=== PATIENT | female | born 1970 | race Caucasian/White ===

== ENCOUNTER 2018-02-03 07:39 | Emergency (ER) | payer OTHER, BC ==
[2018-02-03] MEDS ORDERED: DIPH,PERTUS(ACELL)TETVAC-LF 0.5 ML VIAL IM ONE (07:48)
[2018-02-03 07:54] VITALS: BP 149/81; PULSE 81; RESP 20; TEMP 98
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
[2018-02-03 08:06] LABS: Partial Thromboplastin Time 22.2 sec (22.0-30.0); Prothrombin Time 9.5 sec (9.0-12.0)
[2018-02-03 08:10] LABS: ALT 42 U/L (9-52); AST 39 U/L (14-36); Albumin 3.9 g/dL (3.5-5.0); Alcohol <10 mg/dL; Alkaline Phosphatase 75 U/L (38-126); Amylase 53 U/L (30-110); Anion Gap 11 mmol/L; Blood Urea Nitrogen 11 mg/dL (7-17); Calcium 9.1 mg/dL (8.4-10.2); Carbon Dioxide 22 mmol/L (22-30); Chloride 106 mmol/L (98-107); Glucose 109 mg/dL (74-99); Lipase 97 U/L (23-300); Potassium 4.4 mmol/L (3.5-5.1); Sodium 139 mmol/L (137-145); Total Bilirubin 0.8 mg/dL (0.2-1.3); Total Protein 6.6 g/dL (6.3-8.2)
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
[2018-02-03 08:18] LABS: Basophils % (A) 1 %; Eosinophils # (A) 0.1 k/uL (0-0.7); Eosinophils % (A) 1 %; HCT 42.6 % (34.0-46.0); HGB 14.3 gm/dL (11.4-16.0); Lymphocytes # (A) 1.4 k/uL (1.0-4.8); Lymphocytes % (A) 20 %; MCH 31.6 pg (25.0-35.0); MCHC 33.6 g/dL (31.0-37.0); MCV 94.2 fL (80.0-100.0); Monocytes # (A) 0.6 k/uL (0-1.0); Monocytes % (A) 8 %; Neutrophils # (A) 4.8 k/uL (1.3-7.7); Neutrophils % (A) 68 %; Platelet Count 183 k/uL (150-450); RBC 4.52 m/uL (3.80-5.40); RDW 12.1 % (11.5-15.5); WBC 7.1 k/uL (3.8-10.6)
[2018-02-03] MEDS ORDERED: HYDROmorphone 0.5 MG/0.5 ML SYRINGE IVP STA (08:18)
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
[2018-02-03 08:22] LABS: Creatine Kinase 95 U/L (30-135)
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
[2018-02-03 08:34] LABS: Creatine Kinase MB 0.4 ng/mL (0.0-2.4); Troponin I <0.012 ng/mL (0.000-0.034)
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
[2018-02-03 08:59] LABS: Glucose,Whole Blood 108 mg/dL (75-99)
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
--- NOTE | 2018-02-03 11:14 | XR ---
EXAMINATION TYPE: XR forearm RT DATE OF EXAM: 02/03/2018 COMPARISON: NONE HISTORY: Lacerations with foreign bodies forearm TECHNIQUE: Right forearm is examined in 2 views. This exam is compared with an earlier examination FINDINGS: The superficial foreign bodies are largely absent. A large foreign body remains within the mid soft tissues. A more subtle foreign body also remains within the wound site IMPRESSION: 1. 2 radiopaque foreign bodies remain present which appear to be within the wounds. Remaining foreig n bodies have resolved.
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
--- NOTE | 2018-02-06 02:52 | CDI ---
Dear Carlos Rico DO: Please do addendum method of foreign body removal: with/without incision. Thank you, Aris Guzman, Mri Ct Tech. If you have any questions, please contact Html Developer at [phone]. [facility]
== END 2018-02-03 11:40 | disposition home or self-care (01) ==
LOC: EC 07:39
DX: S92.332A Displaced fracture of third metatarsal bone, left foot, initial encounter for closed fracture (principal); S92.345A Nondisplaced fracture of fourth metatarsal bone, left foot, initial encounter for closed fracture; S41.119A Laceration without foreign body of unspecified upper arm, initial encounter; M79.5 Residual foreign body in soft tissue; S50.811A Abrasion of right forearm, initial encounter; S90.812A Abrasion, left foot, initial encounter; R16.0 Hepatomegaly, not elsewhere classified; N32.89 Other specified disorders of bladder; R07.89 Other chest pain; R93.8 Abnormal findings on diagnostic imaging of other specified body structures; J45.909 Unspecified asthma, uncomplicated; Z79.899 Other long term (current) drug therapy; Z88.5 Allergy status to narcotic agent; Z88.8 Allergy status to other drugs, medicaments and biological substances; Z23 Encounter for immunization; V49.40XA Driver injured in collision with unspecified motor vehicles in traffic accident, initial encounter; Y93.89 Activity, other specified; Y92.410 Unspecified street and highway as the place of occurrence of the external cause
CPT/HCPCS: 99291; 29515; 96374; 90471; 36415; 93005; 86900; 86901; 80053; 82150; 82550; 82553; 83605; 83690; 84484; 85025; 85610; 85730; 86850; 80320; 73630; 72170; 73090; 73130; 71045; 72125; 70450; 71260; 74177; 90715; J1170; Q9967

== ENCOUNTER → 2018-02-11 | Outpatient (CLI) | payer OTHER, BC ==
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
== END | disposition home or self-care (01) ==
LOC: RADCTMAIN 17:38
PROVIDERS: ATTEND Orthopaedic Surgery
DX: S92.322D Displaced fracture of second metatarsal bone, left foot, subsequent encounter for fracture with routine healing (principal); S92.332D Displaced fracture of third metatarsal bone, left foot, subsequent encounter for fracture with routine healing; S92.342D Displaced fracture of fourth metatarsal bone, left foot, subsequent encounter for fracture with routine healing; S93.325D Dislocation of tarsometatarsal joint of left foot, subsequent encounter; M77.32 Calcaneal spur, left foot

== ENCOUNTER 2018-03-07 11:33 | Day surgery (SDC) | payer OTHER, BC ==
[2018-02-28 15:38] VITALS: BMI 36.8
[~2018-03-07 11:33] MED LIST: DEXAMETHASONE SOD PHOSPHATE 10 MG/ML 1 ML VIAL IV ONE; HYDROmorphone 0.5 MG/0.5 ML SYRINGE IVP PRN; LACTATED RINGERS 1,000 ML IV SCH; LIDOCAINE 1% 20 ML VIAL (10MG/ML) FOR IV START INTRADERMA PRN; MIDAZOLAM 2 MG/2 ML VIAL IV PRN; ceFAZolin IN SWFI 2 GM/20 ML SYRINGE IVP ONE; fentaNYL (PF) 50 MCG/ML 2 ML AMP IV PRN
[2018-03-07] MEDS ORDERED: ONDANSETRON 4 MG/2 ML VIAL ONE (12:21)
[2018-03-07] MEDS: ONDANSETRON 4 MG/2 ML VIAL IVP ONE ×2 (12:32→18:07)
[2018-03-07] MEDS ORDERED: SCOPOLAMINE 1.5MG/72HR PATCH TRANSDERM ONE (12:33)
[2018-03-07] MEDS ORDERED: SUCCINYLCHOLINE CHLORIDE 100 MG/5 ML SYR IV ONE (13:45)
[2018-03-07] MEDS ORDERED: PROPOFOL 10 MG/ML 20 ML VIAL IV ONE (13:45)
[2018-03-07] MEDS ORDERED: fentaNYL (PF) 50 MCG/ML 2 ML AMP ONE (13:45)
[2018-03-07] MEDS ORDERED: LIDOCAINE 1% INJ 10MG/ML (20 ML MDV) ONE (13:45)
[2018-03-07] MEDS ORDERED: MIDAZOLAM 2 MG/2 ML VIAL ONE (13:45)
[2018-03-07] MEDS ORDERED: LACTATED RINGERS 1,000 ML IV ONE (15:33)
--- NOTE | 2018-03-07 15:45 | XR ---
EXAMINATION TYPE: XR foot limited LT, FL guidance operating room DATE OF EXAM: 03/07/2018 CLINICAL HISTORY: Left foot open reduction and internal fixation TECHNIQUE: Fluoroscopy. COMPARISON: None. FINDINGS/IMPRESSION: Fluoroscopic guidance was provided during procedure performed by Dr. Gamboa. A total of 47 seconds of fluoroscopic time was utilized during the procedure and 8 spot images was a cquired during open reduction internal fixation of the left foot fractures.
[2018-03-07 16:45] VITALS: TEMP 97.2
[2018-03-07] MEDS ORDERED: HYDROmorphone 1 MG/ML 1 ML SYRINGE IVP ONE ×2 (16:50→16:55)
[2018-03-07 16:54] VITALS: RESP 16
[2018-03-07] MEDS ORDERED: fentaNYL (PF) 50 MCG/ML 2 ML AMP IVP ONE ×2 (17:07→17:25)
[2018-03-07] MEDS ORDERED: Acetaminophen-Codeine 300-30mg TAB PO ONE (18:12)
[2018-03-07 18:46] VITALS: BP 132/95; PULSE 97
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
== END 2018-03-07 18:57 | disposition home or self-care (01) ==
LOC: OR 11:33
PROVIDERS: ATTEND Orthopaedic Surgery
DX: S93.325A Dislocation of tarsometatarsal joint of left foot, initial encounter (principal); W10.9XXA Fall (on) (from) unspecified stairs and steps, initial encounter; Z85.850 Personal history of malignant neoplasm of thyroid; E07.9 Disorder of thyroid, unspecified; J45.909 Unspecified asthma, uncomplicated; K21.9 Gastro-esophageal reflux disease without esophagitis; Z79.51 Long term (current) use of inhaled steroids; Z79.890 Hormone replacement therapy; Z79.899 Other long term (current) drug therapy; E03.8 Other specified hypothyroidism; Z88.5 Allergy status to narcotic agent; Z88.8 Allergy status to other drugs, medicaments and biological substances
CPT/HCPCS: 81025; 73620; 28615; C1713; J2250; J1100; J2405; J2001; J3010; J1170; J0330; J2704; J0690

== ENCOUNTER 2018-07-11 10:58 | Day surgery (SDC) | payer OTHER, BC ==
[2018-07-09 13:57] VITALS: BMI 36.0
[~2018-07-11 10:58] MED LIST changes: -HYDROmorphone 0.5 MG/0.5 ML SYRINGE IVP PRN; -LIDOCAINE 1% 20 ML VIAL (10MG/ML) FOR IV START INTRADERMA PRN; -MIDAZOLAM 2 MG/2 ML VIAL IV PRN; +MORPHINE SULFATE 2 MG/ML SYRINGE IV PRN; +ONDANSETRON 4 MG/2 ML VIAL IVP ONE; +ONDANSETRON 4 MG/2 ML VIAL IVP PRN; +SCOPOLAMINE 1.5MG/72HR PATCH TRANSDERM ONE
[2018-07-11] MEDS ORDERED: LIDOCAINE 1% 20 ML VIAL (10MG/ML) FOR IV START INTRADERMA ONE (11:40)
[2018-07-11] MEDS ORDERED: LACTATED RINGERS 1,000 ML IV ONE (11:40)
[2018-07-11] MEDS ORDERED: HYDROmorphone 1 MG/ML 1 ML SYRINGE IVP PRN ×2 (12:45)
[2018-07-11] MEDS ORDERED: LACTATED RINGERS 1,000 ML IV SCH (12:45)
[2018-07-11] MEDS ORDERED: Acetaminophen-Codeine 300-30mg TAB PO PRN ×2 (12:45)
[2018-07-11] MEDS ORDERED: ONDANSETRON 4 MG/2 ML VIAL IVP PRN (12:45)
[2018-07-11] MEDS ORDERED: LIDOCAINE 1% INJ 10MG/ML (20 ML MDV) ONE (12:50)
[2018-07-11] MEDS ORDERED: PROPOFOL 10 MG/ML 20 ML VIAL IV ONE (12:50)
[2018-07-11] MEDS ORDERED: MIDAZOLAM 2 MG/2 ML VIAL ONE (12:50)
[2018-07-11] MEDS ORDERED: KETAMINE 10 MG/ML 20 ML VIAL ONE (12:50)
[2018-07-11] MEDS ORDERED: CHLOROPROCAINE 3% 30 MG/ML 20 ML VIAL ONE (12:50)
[2018-07-11] MEDS ORDERED: ceFAZolin 1,000 MG in SODIUM CHLORIDE 0.9% 1,000 ML IRRIGATION ONE (13:09)
[2018-07-11] MEDS ORDERED: ROPIVACAINE 5 MG/ML 30 ML VIAL MISCELLANE ONE (13:48)
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
--- NOTE | 2018-07-11 14:03 | FL ---
Fluoroscopy History: LT foot hardware removal LT foot hardware removal. 6 sec FL time. [address] Gamboa.
[2018-07-11 14:12] VITALS: TEMP 97.5
[2018-07-11 15:00] VITALS: BP 116/69; PULSE 62; RESP 17
== END 2018-07-11 15:13 | disposition home or self-care (01) ==
LOC: OR 10:58
PROVIDERS: ATTEND Orthopaedic Surgery
DX: T84.84XA Pain due to internal orthopedic prosthetic devices, implants and grafts, initial encounter (principal); Z87.81 Personal history of (healed) traumatic fracture; J98.4 Other disorders of lung; E03.9 Hypothyroidism, unspecified; J45.909 Unspecified asthma, uncomplicated; Z85.850 Personal history of malignant neoplasm of thyroid; Z79.82 Long term (current) use of aspirin; Z79.890 Hormone replacement therapy; Z79.899 Other long term (current) drug therapy; Z88.5 Allergy status to narcotic agent; Z88.8 Allergy status to other drugs, medicaments and biological substances
CPT/HCPCS: 81025; 73630; 20680; J2400; J2250; J1100; J2405; J0690 ×2; J2001; J3010; J2795; J2704

== ENCOUNTER → 2021-03-30 | Outpatient (CLI) | payer BC, OTHER ==
--- NOTE | 2021-03-30 09:06 | XR ---
EXAMINATION TYPE: XR clavicle bilateral DATE OF EXAM: 03/30/2021 COMPARISON: NONE HISTORY: 50-year-old female right clavicle/sternoclavicular joint lump. Recent weight loss. Recent th yroid surgery for thyroid cancer. TECHNIQUE: 2 views each side FINDINGS: No acute or healing fractures are identified of the clavicle. Bilateral AC joints appear intact. No p eriostitis or osteolysis. IMPRESSION: No discrete clavicular abnormality is radiographically apparent.
[2021-03-30 09:39] LABS: ALT 11 U/L (4-34); AST 19 U/L (14-36); African American GFR (CKD) >90 (>60 ml/min/1.73 sqM); Albumin 3.9 g/dL (3.5-5.0); Alkaline Phosphatase 59 U/L (38-126); Anion Gap 6 mmol/L; Blood Urea Nitrogen 11 mg/dL (7-17); Calcium 9.5 mg/dL (8.4-10.2); Carbon Dioxide 25 mmol/L (22-30); Chloride 108 mmol/L (98-107); Glucose 99 mg/dL (74-99); Non-African American GFR(CKD) >90 (>60 ml/min/1.73 sqM); Potassium 4.7 mmol/L (3.5-5.1); Sodium 139 mmol/L (137-145); Total Bilirubin 0.8 mg/dL (0.2-1.3); Total Protein 6.5 g/dL (6.3-8.2)
[2021-03-30 10:34] LABS: Basophils # (A) 0.1 k/uL (0-0.2); Basophils % (A) 1 %; Eosinophils # (A) 0.1 k/uL (0-0.7); Eosinophils % (A) 2 %; HCT 44.8 % (34.0-46.0); Lymphocytes # (A) 1.1 k/uL (1.0-4.8); Lymphocytes % (A) 20 %; MCH 33.5 pg (25.0-35.0); MCHC 33.4 g/dL (31.0-37.0); MCV 100.3 fL (80.0-100.0); Mean Platelet Volume 8.1; Monocytes # (A) 0.4 k/uL (0-1.0); Monocytes % (A) 7 %; Neutrophils # (A) 3.5 k/uL (1.3-7.7); Neutrophils % (A) 67 %; Platelet Count 205 k/uL (150-450); RBC 4.46 m/uL (3.80-5.40); RDW 12.5 % (11.5-15.5); WBC 5.2 k/uL (3.8-10.6)
== END | disposition home or self-care (01) ==
LOC: RADXRMAIN 08:04
PROVIDERS: ATTEND Nurse Practitioner Family
DX: R22.1 Localized swelling, mass and lump, neck (principal); Z85.850 Personal history of malignant neoplasm of thyroid
CPT/HCPCS: 80053; 84432; 84443; 85025; 86800

== ENCOUNTER → 2021-05-08 | Outpatient (CLI) | payer BC | END | disposition home or self-care (01) | LOC: RADNMMAIN 11:33 | PROVIDERS: ATTEND Internal Medicine Endocrinology, Diabetes & Metabolism ==

== ENCOUNTER → 2021-06-06 | Outpatient (CLI) | payer BC | END | disposition home or self-care (01) | LOC: LABWHC1 11:31 | PROVIDERS: ATTEND Internal Medicine Endocrinology, Diabetes & Metabolism | DX: C73 Malignant neoplasm of thyroid gland (principal) | CPT/HCPCS: 36415; 84702 ==

== ENCOUNTER 2021-07-31 10:26 | Day surgery (SDC) | payer BC ==
[2021-07-27 11:28] VITALS: BMI 31.0
--- NOTE | 2021-07-31 07:48 | P.GSHP ---
History of Present Illness H&P Date: 07/31/21 CHIEF COMPLAINT: Colon screen HISTORY OF PRESENT ILLNESS: The patient is a 50-year-old female who presents for colon screen. Lower endoscopy was offered for further evaluation and management. PAST MEDICAL HISTORY: Please see list. PAST SURGICAL HISTORY: Please see list. MEDICATIONS: Please see list. ALLERGIES: Please see list. SOCIAL HISTORY: No illicit drug use FAMILY HISTORY: No reports of Crohn disease or ulcerative colitis. REVIEW OF ORGAN SYSTEMS: CONSTITUTIONAL: No reports of fevers or chills. PHYSICAL EXAM: VITAL SIGNS: Stable GENERAL: Well-developed pleasant in no acute distress. HEENT: No scleral icterus. Extraocular movements grossly intact. Moist buccal mucosa. NECK: Supple without lymphadenopathy. CHEST: Unlabored respirations. Equal bilateral excursions. CARDIOVASCULAR: Regular rate and rhythm. Distal 2+ pulses. ABDOMEN: Soft, nontender, nondistended. MUSCULOSKELETAL: No clubbing, cyanosis, or edema. ASSESSMENT: 1. Colon screen. PLAN: 1. Recommend proceeding with a lower endoscopy Past Medical History Past Medical History: Asthma, Cancer, Thyroid Disorder Additional Past Medical History / Comment(s): VERTIGO. FREQUENT HEADACHES. "microcarcinoma thyroid cance",had vocal cord injury with thyroid surgery History of Any Multi-Drug Resistant Organisms: None Reported Past Surgical History: Section, Cholecystectomy, Tubal Ligation, Uterine Ablation Additional Past Surgical History / Comment(s): throidectomy, left laryngeal repair implant to force vocal cord closed on left side called vocal cord medialization Additional Past Anesthesia/Blood Transfusion Reaction / Comment(s): VERTIGO. PT HAS AN "IMPLANT" THAT WAS PLACED AFTER HER THYROIDECTOMY DUE TO LARYNGEAL NERVE DAMAGE,took awhile to wake up after foot surgery Smoking Status: Never smoker - Past Family History Mother Family Medical History: Cancer Medications and Allergies Home Medications Medication Instructions Recorded Confirmed Type Albuterol Sulfate [Proair Hfa] 1 - 2 puff INHALATION RT-QID PRN 02/03/18 07/27/21 History Levothyroxine Sodium [Tirosint] 150 mcg PO QAM 02/03/18 07/27/21 History Budesonide/Formoterol Fumarate 2 puff INHALATION BID 06/06/21 07/27/21 History [Symbicort 160-4.5 Mcg Inhaler] Celecoxib [CeleBREX] 100 mg PO BID PRN 06/06/21 07/27/21 History Ascorbic Acid [Vitamin C] 1,000 mg PO DAILY 07/27/21 07/27/21 History Montelukast [Singulair] 10 mg PO DAILY 07/27/21 07/27/21 History Vitamin D(Unknown Dose) 1 tab PO DAILY 07/27/21 07/27/21 History Zinc 50 mg PO DAILY 07/27/21 07/27/21 History Allergies Allergy/AdvReac Type Severity Reaction Status Date / Time codeine Allergy migraines Verified 07/27/21 11:15 hydrocodone [From [place]] AdvReac MIGRAINES Verified 07/27/21 11:15 metaxalone [From [place]ax[place]] AdvReac Nausea & Verified 07/27/21 11:15 Vomiting
[~2021-07-31 10:26] MED LIST changes: -DEXAMETHASONE SOD PHOSPHATE 10 MG/ML 1 ML VIAL IV ONE; -MORPHINE SULFATE 2 MG/ML SYRINGE IV PRN; -ONDANSETRON 4 MG/2 ML VIAL IVP ONE; -ONDANSETRON 4 MG/2 ML VIAL IVP PRN; -SCOPOLAMINE 1.5MG/72HR PATCH TRANSDERM ONE; -ceFAZolin IN SWFI 2 GM/20 ML SYRINGE IVP ONE; -fentaNYL (PF) 50 MCG/ML 2 ML AMP IV PRN
[2021-07-31 10:48] VITALS: TEMP 98.3
[2021-07-31] MEDS ORDERED: PROPOFOL 10 MG/ML 20 ML VIAL IV ONE (11:24)
[2021-07-31] MEDS ORDERED: LIDOCAINE 1% INJ 10MG/ML (20 ML MDV) ONE (11:24)
--- NOTE | 2021-07-31 11:55 | P.PCN ---
Date of Procedure: 07/31/21 Description of Procedure: PREOPERATIVE DIAGNOSIS: Colonoscopy screening POSTOPERATIVE DIAGNOSIS: Colonoscopy screening Tubular adenoma ascending colon Sigmoid diverticulosis OPERATION: Colonoscopy to the ileocecal valve and appendiceal orifice, cecum Colonoscopy with hot snare polypectomy SURGEON: Amy Diaz MD. ANESTHESIA: MAC. INDICATIONS: The patient is an 50-year-old female who presents for colonoscopy screening. Benefits and risks were described and informed consent was obtained. DESCRIPTION OF PROCEDURE: The patient had undergone Sutab prep. The patient had been brought into the operating room and laid in the left lateral decubitus position. After adequate intravenous sedation, the rectum was examined with 2% lidocaine jelly. The prostate was unremarkable. No external hemorrhoids were encountered. The rectal tone was within normal limits. No lesions were palpated in the rectal vault. An Olympus colonoscope was advanced until the cecum, ileocecal valve and appendiceal orifice were clearly viewed. The prep was good. Sigmoid diverticulosis was encountered. Colonic polyps were found and removed. No evidence of focal colitis was found. Retroflexion of the scope demonstrated grade 1 internal hemorrhoids without active bleeding or inflammation. The colon was desufflated. The patient had tolerated the procedure well. Withdrawal time was over 6 minutes. FINDINGS: Aronchick preparation quality scale 2 (1-5) Internal hemorrhoids, grade 1 No external hemorrhoids No arteriovenous malformations. Highly redundant sigmoid colon Sigmoid diverticulosis Removal of 1 polyps: - Snare polypectomy ascending colon, 6 mm tubulovillous adenoma polyp. No focal colitis. RECOMMENDATIONS: Repeat colonoscopy in 3 years, 2023 Plan - Discharge Summary Discharge Rx Participant: No New Discharge Prescriptions: Continue Levothyroxine Sodium [Tirosint] 150 mcg PO QAM Albuterol Sulfate [Proair Hfa] 1 - 2 puff INHALATION RT-QID PRN PRN Reason: Shortness Of Breath Celecoxib [CeleBREX] 100 mg PO BID PRN PRN Reason: Pain Budesonide/Formoterol Fumarate [Symbicort 160-4.5 Mcg Inhaler] 2 puff INHALATION BID Zinc 50 mg PO DAILY Montelukast [Singulair] 10 mg PO DAILY Ascorbic Acid [Vitamin C] 1,000 mg PO DAILY Vitamin D(Unknown Dose) 1 tab PO DAILY Discharge Medication List Albuterol Sulfate [Proair Hfa] 1 - 2 puff INHALATION RT-QID PRN 02/03/18 [Hist ory] Levothyroxine Sodium [Tirosint] 150 mcg PO QAM 02/03/18 [History] Budesonide/Formoterol Fumarate [Symbicort 160-4.5 Mcg Inhaler] 2 puff INHALATION BID 06/06/21 [History] Celecoxib [CeleBREX] 100 mg PO BID PRN 06/06/21 [History] Ascorbic Acid [Vitamin C] 1,000 mg PO DAILY 07/27/21 [History] Montelukast [Singulair] 10 mg PO DAILY 07/27/21 [History] Vitamin D(Unknown Dose) 1 tab PO DAILY 07/27/21 [History] Zinc 50 mg PO DAILY 07/27/21 [History] Follow up Appointment(s)/Referral(s): Amy Diaz MD [STAFF PHYSICIAN] - As Needed Patient Instructions/Handouts: Diverticulosis Diet (GEN), Diverticulosis (DC), Colorectal Polyps (GEN) Activity/Diet/Wound Care/Special Instructions: Repeat colonoscopy in 3 years2023 Discharge Disposition: HOME SELF-CARE
[2021-07-31 12:14] VITALS: RESP 20
[2021-07-31 12:52] VITALS: BP 112/71; PULSE 66
== END 2021-07-31 12:53 | disposition home or self-care (01) ==
LOC: ORWHC2ENDO 10:26
PROVIDERS: ATTEND Surgery Plastic and Reconstructive Surgery
DX: Z12.11 Encounter for screening for malignant neoplasm of colon (principal); K57.30 Diverticulosis of large intestine without perforation or abscess without bleeding; D12.2 Benign neoplasm of ascending colon; E07.9 Disorder of thyroid, unspecified; J45.909 Unspecified asthma, uncomplicated
CPT/HCPCS: 45385; 81025; J2001; J2704; 88305

== ENCOUNTER → 2022-03-09 | Outpatient (CLI) | payer BC | END | disposition home or self-care (01) | LOC: LABWHC1 15:48 | PROVIDERS: ATTEND Internal Medicine Endocrinology, Diabetes & Metabolism | DX: C73 Malignant neoplasm of thyroid gland (principal) | CPT/HCPCS: 36415; 84432; 84443; 86800 ==

== ENCOUNTER → 2022-08-22 | Outpatient (CLI) | payer BC ==
--- NOTE | 2022-08-23 09:00 | MM ---
Reason for Exam: Screening (asymptomatic). Last mammogram was performed 1 year(s) and 2 month(s) ago. Patient History: Menarche at age 13. First Full-Term at age 21. Postmenopausal. Paternal grandmother had breast cancer at or over age 50. Paternal aunt had breast cancer at or over age 50. Risk Values: Mary Jo 5 year model risk: 0.9%. NCI Lifetime model risk: 8.0%. Tissue Density: The breast tissue is heterogeneously dense. This may lower the sensitivity of mammography. Findings: Analyzed By CAD. There is no suspicious group of microcalcifications or new suspicious mass in either breast. Overall Assessment: Negative, BI-RAD 1 Management: Screening Mammogram of both breasts in 1 year. A clinical breast exam by your physician is recommended on an annual basis and results should be correlated with mammographic findings. Electronically signed and approved by: Kaden Lynn M.D.
== END | disposition home or self-care (01) ==
LOC: RADMAMWWP 07:53
PROVIDERS: ATTEND Family Medicine
DX: Z12.31 Encounter for screening mammogram for malignant neoplasm of breast (principal); Z78.0 Asymptomatic menopausal state; Z80.3 Family history of malignant neoplasm of breast
CPT/HCPCS: 77063; 77067

== ENCOUNTER → 2022-12-25 | Outpatient (CLI) | payer BC ==
--- NOTE | 2022-12-26 07:24 | US ---
EXAMINATION TYPE: US thyroid st tissue head/neck DATE OF EXAM: 12/25/2022 COMPARISON: Nuclear medicine 06/09/2021, CLINICAL INDICATION: Female, 52 years old with history of C73 MALIGNANT NEOPLASM OF THYROID GLAND; GLAND SIZE: Normal imaging fluid collection mass visualized. Right Lobe: Surgically absent Left Lobe: Surgically absent Isthmus Thickness: Surgically absent Bilateral neck scanned, no evidence of lymphadenopathy. No residual tissue identified. IMPRESSION: Surgically absent thyroid gland without evidence for remnant tissue or lymphadenopathy.
== END | disposition home or self-care (01) ==
LOC: RADUSWWP 16:17
PROVIDERS: ATTEND Internal Medicine Endocrinology, Diabetes & Metabolism
DX: C73 Malignant neoplasm of thyroid gland (principal)
CPT/HCPCS: 76536

== ENCOUNTER → 2022-12-25 | Outpatient (CLI) | payer BC ==
[2022-12-26 00:29] LABS: Anion Gap 9.2 mmol/L (10.00-18.00); BUN/Creat Ratio 17.05 Ratio (12.00-20.00); Blood Urea Nitrogen 13.3 mg/dL (9.0-27.0); Calcium 9.4 mg/dL (8.7-10.3); Carbon Dioxide 26.8 mmol/L (20.0-27.5); Potassium 4.4 mmol/L (3.5-5.5)
== END | disposition home or self-care (01) ==
LOC: LABWHC1 14:12
PROVIDERS: ATTEND Internal Medicine Endocrinology, Diabetes & Metabolism
DX: C73 Malignant neoplasm of thyroid gland (principal); E55.9 Vitamin D deficiency, unspecified; J45.31 Mild persistent asthma with (acute) exacerbation
CPT/HCPCS: 36415; 80048; 82306; 84432; 84443; 86800

== ENCOUNTER → 2023-07-26 | Outpatient (CLI) | payer BC | END | disposition home or self-care (01) | LOC: LABWHC1 15:31 | PROVIDERS: ATTEND Internal Medicine Endocrinology, Diabetes & Metabolism | DX: C73 Malignant neoplasm of thyroid gland (principal) | CPT/HCPCS: 36415; 84432; 84443; 86800 ==

== ENCOUNTER → 2024-02-05 | Outpatient (CLI) | payer BC ==
--- NOTE | 2024-02-06 08:24 | MM ---
Reason for Exam: Screening (asymptomatic). Last mammogram was performed 1 year(s) and 5 month(s) ago. Patient History: Menarche at age 13. First Full-Term at age 21. Postmenopausal. Paternal grandmother had breast cancer at or over age 50. Paternal aunt had breast cancer at or over age 50. Risk Values: Mary Jo 5 year model risk: 0.9%. NCI Lifetime model risk: 7.8%. Prior Study Comparison: 02/11/2020 Right MG diagnostic mammo RT w CAD - 2, [facility]. 06/22/2021 Bilateral MG screening mammo w CAD - 2, [facility]. 08/22/2022 Bilateral MG 3D screening mammo w/cad, [facility]. Tissue Density: The breasts are heterogeneously dense, which may obscure small masses. Findings: Analyzed By CAD. There is no suspicious group of microcalcifications or new suspicious mass in either breast. Overall Assessment: Negative, BI-RAD 1 Management: Screening Mammogram of both breasts in 1 year. . Patient should continue monthly self-breast exams. A clinical breast exam by your physician is recommended on an annual basis. This exam should not preclude additional follow-up of suspicious palpable abnormalities. Note on Mary Jo scores and lifetime risk: 1. A Mary Jo score greater than 3% is considered moderate risk. If this is the case, consider specialist referral to assess eligibility for a risk reducing agent. 2. If overall lifetime risk for the development of breast cancer is 20% or higher, the patient may qualify for future screening with alternating mammogram and breast MRI. Electronically signed and approved by: Pako Duron M.D. Radiologis
== END | disposition home or self-care (01) ==
LOC: RADMAMWWP 07:08
PROVIDERS: ATTEND Obstetrics & Gynecology Obstetrics
DX: Z12.31 Encounter for screening mammogram for malignant neoplasm of breast (principal); Z80.3 Family history of malignant neoplasm of breast; Z78.0 Asymptomatic menopausal state
CPT/HCPCS: 77063; 77067

== ENCOUNTER → 2024-06-18 | Outpatient (CLI) | payer BC ==
--- NOTE | 2024-06-18 20:37 | US ---
EXAMINATION TYPE: US thyroid st tissue head/neck DATE OF EXAM: 06/18/2024 COMPARISON: US CLINICAL INDICATION: Female, 53 years old with history of Z85.850 PERSONAL HX MALIG APOLINAR THY; H/O thyr oid cancer, thyroidectomy, annual follow-up TECHNIQUE: Grayscale and color Doppler imaging of the thyroid gland. FINDINGS: GLAND SIZE: Right Lobe: Surgically absent Left Lobe: Surgically absent Isthmus Thickness: Surgically absent NODULES RIGHT: # of nodules measured on right: 0 LEFT: # of nodules measured on left: 0 ISTHMUS: # of nodules measured in the isthmus: 0 Bilateral neck scanned, no evidence of lymphadenopathy. Bilateral thyroid bed appeared wnl, similar f indings when compared to prior. IMPRESSION: 1. No recurrent masses within the surgical thyroid bed. [email or web address] [facility], , 06/18/2024 8:35 PM
== END | disposition home or self-care (01) ==
LOC: RADUSWWP 07:25
PROVIDERS: ATTEND Family Medicine
DX: Z85.850 Personal history of malignant neoplasm of thyroid (principal)
CPT/HCPCS: 76536

== ENCOUNTER → 2024-07-01 | Day surgery (SDC) | payer BC ==
[2024-06-29 13:03] VITALS: BMI 35.2
[~2024-07-01] MED LIST changes: +PROPOFOL 10 MG/ML 20 ML VIAL IV ONE
[2024-07-01] MEDS: IV FLUID CONTINUATION 1,000 ML IV ONE (09:23)
[2024-07-01 09:34] VITALS: TEMP 98
[2024-07-01 11:19] VITALS: BP 117/74; PULSE 64; RESP 18
--- NOTE | 2024-07-01 12:42 | P.GSHP ---
History of Present Illness H&P Date: 07/01/24 CHIEF COMPLAINT: GERD and colon screen HISTORY OF PRESENT ILLNESS: The patient is a 53-year-old female who presents with gastroesophageal reflux disease and need for colon screen. Upper and lower endoscopy were offered for further evaluation and management. PAST MEDICAL HISTORY: Please see list. PAST SURGICAL HISTORY: Please see list. MEDICATIONS: Please see list. ALLERGIES: Please see list. SOCIAL HISTORY: No illicit drug use FAMILY HISTORY: No reports of Crohn disease or ulcerative colitis. REVIEW OF ORGAN SYSTEMS: CONSTITUTIONAL: No reports of fevers or chills. GI: Denies any blood in stools or constipation. PHYSICAL EXAM: VITAL SIGNS: Stable GENERAL: Well-developed pleasant in no acute distress. HEENT: No scleral icterus. Extraocular movements grossly intact. Moist buccal mucosa. NECK: Supple without lymphadenopathy. CHEST: Unlabored respirations. Equal bilateral excursions. CARDIOVASCULAR: Regular rate and rhythm. Distal 2+ pulses. ABDOMEN: Soft, nondistended. MUSCULOSKELETAL: No clubbing, cyanosis, or edema. ASSESSMENT: 1. Gastroesophageal reflux disease 2. Colon screen. PLAN: 1. Recommend proceeding with an upper and lower endoscopy Past Medical History Past Medical History: Asthma, Cancer, Thyroid Disorder Additional Past Medical History / Comment(s): VERTIGO. FREQUENT HEADACHES. "microcarcinoma thyroid cancer",had vocal cord injury with thyroid surgery. Throat is more narrow now and has coughing at night. History of Any Multi-Drug Resistant Organisms: None Reported Past Surgical History: Section, Cholecystectomy, Orthopedic Surgery, Tubal Ligation, Uterine Ablation Additional Past Surgical History / Comment(s): thyroidectomy, left laryngeal repair implant to force vocal cord closed on left side called vocal cord medialization. Fx. of left foot and had surgery. Past Anesthesia/Blood Transfusion Reactions: Previous Problems w/ Anesthesia Additional Past Anesthesia/Blood Transfusion Reaction / Comment(s): VERTIGO, PT HAS AN "IMPLANT" THAT WAS PLACED AFTER HER THYROIDECTOMY DUE TO LARYNGEAL NERVE DAMAGE. took awhile to wake up after foot surgery. Smoking Status: Never smoker - Past Family History Mother Family Medical History: Cancer Medications and Allergies Home Medications Medication Instructions Recorded Confirmed Type Albuterol Sulfate [Proair Hfa] 1 - 2 puff INHALATION RT-QID PRN 02/03/18 07/01/24 History Levothyroxine Sodium [Tirosint] 175 mcg PO QAM 02/03/18 07/01/24 History Famotidine/Ca Carb/Mag Hydrox 1 tab PO DAILY 06/29/24 07/01/24 History [Pepcid Complete Tablet Chew] Pantoprazole [Protonix] 40 mg PO DAILY 06/29/24 07/01/24 History Allergies Allergy/AdvReac Type Severity Reaction Status Date / Time codeine Allergy migraines Verified 07/01/24 09:40 hydrocodone [From [place]] AdvReac MIGRAINES Verified 07/01/24 09:40 metaxalone [From [place]el[place]] AdvReac Nausea & Verified 07/01/24 09:40 Vomiting Surgical - Exam Vital Signs Temp Pulse Resp BP Pulse Ox 98 F 82 16 117/71 98 07/01/24 09:32 07/01/24 09:32 07/01/24 09:32 07/01/24 09:32 07/01/24 09:32
--- NOTE | 2024-07-01 12:44 | P.PCN ---
Date of Procedure: 07/01/24 Description of Procedure: PREOPERATIVE DIAGNOSIS: Dysphagia Gastroesophageal reflux disease. Obesity excess calories, BMI 34.6 POSTOPERATIVE DIAGNOSIS: Gastroesophageal reflux disease. Gastritis. Diaphragmatic hiatal hernia Duodenitis OPERATION: Esophagogastroduodenoscopy with biopsies along esophagus, antrum and duodenum SURGEON: Amy Diaz MD ANESTHESIA: MAC. INDICATIONS: The patient is a 53-year-old female who presents with dysphagia and reflux disease. Benefits and risks of the procedure were described. Informed consent was obtained. DESCRIPTION: The patient was brought into the endoscopy suite and laid in the left lateral decubitus position. An Olympus gastroscope was passed along the posterior oropharynx down to the distal esophagus where the squamocolumnar junction was encountered at 38 cm from the incisors. The stomach was entered and no bile reflux was found. Additional findings are listed below. Biopsies with cold forceps were obtained of the antrum. The first through third portion of the duodenum was examined. Retroflexion of the scope confirmed Hill grade 3 lower esophageal valve. The squamocolumnar junction demonstrated LA grade B erosive esophagitis. The stomach was desufflated. The patient tolerated the procedure well. FINDINGS: Squamocolumnar junction 38 cm from the incisors. Diaphragmatic hiatus at 40 cm. Hiatal hernia, 2 cm Hill grade 3 lower esophageal valve. LA grade B erosive esophagitis. Biopsies obtained. Biopsies obtained of the duodenum. Chronic gastritis with biopsies obtained. RECOMMENDATIONS: Upper endoscopy as needed.
--- NOTE | 2024-07-01 12:46 | P.PCN ---
Date of Procedure: 07/01/24 Description of Procedure: PREOPERATIVE DIAGNOSIS: History of colon polyps, personal Colonoscopy screening. POSTOPERATIVE DIAGNOSIS: Incomplete colonoscopy OPERATION: Colonoscopy to the ascending colon/hepatic flexure without biopsies SURGEON: Amy Diaz MD. ANESTHESIA: MAC. INDICATIONS: The patient is a 53-year-old female who presents for colonoscopy screening. Last colonoscopy 5 years. Benefits and risks were described and informed consent was obtained. DESCRIPTION OF PROCEDURE: The patient had undergone GoLytely prep. The patient had been brought into the operating room and laid in the left lateral decubitus position. After adequate intravenous sedation, the rectum was examined with 2% lidocaine jelly. External hemorrhoids were encountered. Prostate was unremarkable. The rectal tone was within normal limits. No lesions were palpated in the rectal vault. An Olympus colonoscope was advanced through tortuous sigmoid colon requiring abdominal wall pressure. Despite multiple maneuvers scope passed to the ascending colon without intubation of the cecum. Questionable growth of the ileocecal valve/base of the cecum cannot be ascertained. The prep was good. No large scattered diverticulosis was encountered. No evidence of focal colitis was found. Retroflexion of the scope demonstrated grade 2 internal hemorrhoids without active bleeding or inflammation. The colon was desufflated. The patient had tolerated the procedure well. Withdrawal time was over 6 minutes. FINDINGS: Aronchick preparation quality scale 2 (1-5) Internal hemorrhoids, grade 2 External prolapsed hemorrhoids, grade 2 Abdominal pressure to advance the scope. No arteriovenous malformations. Highly redundant sigmoid colon requiring abdominal wall pressure No focal colitis. RECOMMENDATIONS: Recommend barium enema to capture ascending colon and cecum Repeat colonoscopy in 3 years, 2026 Plan - Discharge Summary Discharge Rx Participant: Yes New Discharge Prescriptions: Continue Levothyroxine Sodium [Tirosint] 175 mcg PO QAM Albuterol Sulfate [Proair Hfa] 1 - 2 puff INHALATION RT-QID PRN PRN Reason: Shortness Of Breath Famotidine/Ca Carb/Mag Hydrox [Pepcid Complete Tablet Chew] 1 tab PO DAILY Pantoprazole [Protonix] 40 mg PO DAILY Discharge Medication List Albuterol Sulfate [Proair Hfa] 1 - 2 puff INHALATION RT-QID PRN 02/03/18 [History] Levothyroxine Sodium [Tirosint] 175 mcg PO QAM 02/03/18 [History] Famotidine/Ca Carb/Mag Hydrox [Pepcid Complete Tablet Chew] 1 tab PO DAILY 06/29/24 [History] Pantoprazole [Protonix] 40 mg PO DAILY 06/29/24 [History] Follow up Appointment(s)/Referral(s): Amy Diaz MD [STAFF PHYSICIAN] - 07/28/24 4:00 pm Patient Instructions/Handouts: *Surgery [facility] - (Anesthesia) Discharge I nstructions Outpatient Surgery, Barium Enema (DC), Hiatal Hernia (DC) Activity/Diet/Wound Care/Special Instructions: Repeat colonoscopy 3 years, 2026 Discharge Disposition: HOME SELF-CARE
--- NOTE | 2024-07-01 15:26 | FL ---
EXAMINATION TYPE: FL barium enema DATE OF EXAM: 07/01/2024 1:46 PM CLINICAL INDICATION:Female, 53 years old with history of Incomplete scope the hepatic flexure no biop sy; COMPARISON: None TECHNIQUE: The procedure was explained and patient history elicited. All patient questions were answ ered prior to beginning. Multiple spot fluoroscopic images of the colon were obtained after the recta l administration of liquid barium as the contrast agent. Multiple postprocedural overhead images, w ere obtained and reviewed. Fluoroscopic time:2.21 min Fluoroscopic images:0 Radiographs taken: 30 DAP: NOt reported [id number] FINDINGS: The physician practice coordinator abdominal radiograph demonstrates a normal bowel gas pattern without dilated loo ps of small or large bowel. There is no evidence for organomegaly or pneumoperitoneum. No abnormal calcifications. The visualized osseous structures are intact. Right upper quadrant cholecystectomy c lips. The colon demonstrates redundant course and contour without evidence of focal stricture, internal bella ling defects, or abnormal outpouching. Views of the cecum with manual compression are unremarkable. The appendix is visualized. Postevacuation images are unremarkable. IMPRESSION: Redundant colon which limits evaluation slightly. No evidence for abnormal stricture or mass lesion within the sigmoid colon. [facility], , 07/01/2024 3:24 PM
== END | disposition home or self-care (01) ==
LOC: ORWHC2ENDO 09:00
PROVIDERS: ATTEND Surgery Plastic and Reconstructive Surgery
DX: Z12.11 Encounter for screening for malignant neoplasm of colon (principal); K64.1 Second degree hemorrhoids; K64.4 Residual hemorrhoidal skin tags; K63.89 Other specified diseases of intestine; K44.9 Diaphragmatic hernia without obstruction or gangrene; K29.80 Duodenitis without bleeding; K22.89 Other specified disease of esophagus; K21.00 Gastro-esophageal reflux disease with esophagitis, without bleeding; K29.50 Unspecified chronic gastritis without bleeding; Z86.0100 Personal history of colon polyps, unspecified; E66.9 Obesity, unspecified; J45.909 Unspecified asthma, uncomplicated; E89.0 Postprocedural hypothyroidism; F41.9 Anxiety disorder, unspecified; R42 Dizziness and giddiness; Z68.34 Body mass index [BMI] 34.0-34.9, adult; Z90.49 Acquired absence of other specified parts of digestive tract; Z98.51 Tubal ligation status; Z79.890 Hormone replacement therapy; Z79.899 Other long term (current) drug therapy; Z85.850 Personal history of malignant neoplasm of thyroid; Z98.890 Other specified postprocedural states; Z88.5 Allergy status to narcotic agent; Z88.8 Allergy status to other drugs, medicaments and biological substances
CPT/HCPCS: 88305; 74270; 45378; 43239; J2704

== ENCOUNTER → 2025-03-05 | Outpatient (CLI) | payer BC ==
--- NOTE | 2025-03-05 18:13 | XR ---
EXAMINATION TYPE: XR cervical spine comp DATE OF EXAM: 03/05/2025 6:02 PM COMPARISON: None. CLINICAL INDICATION: Female, 54 years old with history of M54.12 RADICULOPATHY, CERVICAL REGION, TECHNIQUE: Frontal, lateral, oblique, swimmers, and open mouth view of the cervical spine are obtaine d. FINDINGS: The cervical spine is visualized in its entirety from C1 thru the top of T1 level. It is s atisfactory in alignment without evidence of acute fracture or dislocation. The pre-vertebral soft t issue appears within normal limits. Moderate degenerative disc space narrowing with ventral and dorsa l spondylosis at C6-7. The C1-C2 articulation is unremarkable on the open mouth view. The oblique im ages are within normal limits. IMPRESSION: No acute fracture or dislocation is seen in the cervical spine.ICD 10 NO FRACTURE, INITI AL EVALUATION [facility], , 03/05/2025 6:10 PM
== END | disposition home or self-care (01) ==
LOC: RADXRMAIN 17:14
PROVIDERS: ATTEND Family Medicine
DX: M50.10 Cervical disc disorder with radiculopathy, unspecified cervical region (principal)
CPT/HCPCS: 72050